=== PATIENT | female | born 2000 ===

== ENCOUNTER 2024-01-31 14:10 | Day surgery (SDC) | payer OTHER ==
[~2024-01-31 14:10] MED LIST: NAPROXEN500 MG
[2024-01-31] MEDS ORDERED: MORGIDOX100 MG PO (18:33)
== END 2024-01-31 20:30 | disposition home or self-care (01) ==
LOC: ADM 14:10 → CIR.AMB 14:10 → ADM 17:30
PROVIDERS: ATTEND Obstetrics & Gynecology
DX: N89.6 Tight hymenal ring (principal); Z91.013 Allergy to seafood; Z88.0 Allergy status to penicillin